=== PATIENT | male | born 1960 | race Two or more races ===

== ENCOUNTER → 2018-10-09 | Outpatient (CLI) | payer MEDICAID ==
[~2018-10-09] MED LIST: CYCL-181 PO; GEMF600T PO; HYDR-4683 PO; LIS10T PO; NAPR-223 PO; SIMV-8 PO
== END | disposition home or self-care (01) ==
LOC: Rad HDHVI 09:01
PROVIDERS: ATTEND Internal Medicine
DX: I10 Essential (primary) hypertension (principal)
CPT/HCPCS: 93306

== ENCOUNTER → 2023-08-14 | Outpatient (CLI) | payer MEDICAID ==
[~2023-08-14] MED LIST changes: -HYDR-4683 PO; +HYDR-4833 PO; -SIMV-8 PO; +SIMV20TA20 PO
== END | disposition home or self-care (01) ==
LOC: Rad HDHVI 09:05
PROVIDERS: ATTEND Internal Medicine Cardiovascular Disease
DX: I10 Essential (primary) hypertension (principal); E78.5 Hyperlipidemia, unspecified
CPT/HCPCS: 93306

== ENCOUNTER → 2023-08-15 | Outpatient (CLI) | payer MEDICAID ==
[~2023-08-15] VITALS: Ht 167.6 cm; Wt 83.9 kg
[~2023-08-15] MED LIST changes: +ADENOSINE 70 MG in GIVE UN-DILUTED 0 ML IV ONE; +ADENOSINE 90 MG/30 ML INJ IV ONE
== END | disposition home or self-care (01) ==
LOC: Rad HDHVI 08:29
PROVIDERS: ATTEND Internal Medicine Cardiovascular Disease
DX: I10 Essential (primary) hypertension (principal); I49.5 Sick sinus syndrome; E78.5 Hyperlipidemia, unspecified; Z95.0 Presence of cardiac pacemaker
CPT/HCPCS: 78452; 93005; 96374; 96375; A9500; J0153